=== PATIENT | male | born 1970 | race Caucasian/White ===

== ENCOUNTER → 2017-07-11 09:50 | Outpatient (CLI) | payer MEDICAID ==
--- NOTE | ~2017-07-11 | EC ---
PATIENT:SPENCER LOVE DATE OF SERVICE: 07/11/17 SEX: M MEDICAL RECORD: [id number] DATE OF : 68 LOCATION:[facility] TO [facility] AGE OF PATIENT: 46 ADMISSION DATE: 07/11/17 REFERRING PHYSICIAN: INTERPRETING PHYSICIAN: JAYE SOLIZ MD ECHOCARDIOGRAM REPORT ECHO CHARGES 4 ECHO COMPLETE CLINICAL DIAGNOSIS: LYMPHEDEMA, ASSESS EF AND VALVES ECHOCARDIOGRAPHIC MEASUREMENTS (adult normal given) AC root (d.<3.7cm) 4.1 cm LV Septum d (<1.2 cm> 1.4 cm Valve Excursion 1.9 cm LV Septum (systole) 1.8 cm Left Atria (s.<4.0cm> 4.3 cm LVPW d(<1.2cm) 1.8 cm RV (d.<2.3cm) 4.5 cm LVPW (sytole) 2.0 cm LV diastole(<5.6CM) 5.4 cm MV E-F(>70mm/sec) cm LV systole 3.4 cm LVOT Diameter 2.4 cm MV exc.(>10mm) 1.9 cm Est.ejection fraction (50-75%) % Pericardial Effusion N DOPPLER: LVIT cm/sec A 82.0 cm/sec E 107 cm/sec LA cm/sec RVSP 23 mmHg LVOT 109 cm/sec AOP1/2T m/s Asc. Ao 150 cm/sec RVOT 125 cm/sec RA cm/sec PA 193 cm/sec AV Gradient Peak 9.00 mmHg AV Mean 4.86 mmHg AV Area 3.7 cm MV Gradient Peak 5.60 mmHg MV Mean 2.11 mmHg MV Area cm COMMENTS: Cat Dog Or Other Pet Groomer: [employer] Seat Cover Installer: 2 Dr. Castellon TAPE# PACS DATE OF SERVICE: 07/11/2017 Echocardiogram FINDINGS: 1. Left ventricular chamber size is within normal limits. Left ventricular systolic function is normal. Overall ejection fraction estimated at 55%. 2. Left atrium is mildly dilated at 4.3 cm. Right atrium and right ventricular chamber sizes are as well mildly dilated. 3. Valvular structures have normal structure and motion. ECHOCARDIOGRAM REPORT [id number] SPENCER LOVE 4. Doppler interrogation reveals mild tricuspid regurgitation, no other valvular insufficiency or stenosis. Pulmonary systolic pressure is estimated at 23 mmHg. 5. No evidence of pericardial effusion or left ventricular thrombus. TRANSINT:[id number] Voice Confirmation ID: [id number] DOCUMENT ID: [id number] JAYE SOLIZ MD CC: [id number] DICTATION DATE: 07/11/17 1313 SUBSTANCE ABUSE PREVENTION COORDINATOR: 07/11/17 1417 REG [facility] [address] [id number]
== END | disposition home or self-care (01) ==
LOC: D.ECHO 09:50
DX: I89.0 Lymphedema, not elsewhere classified (principal)